=== PATIENT | female | born 1965 | race Caucasian/White ===

== ENCOUNTER 2024-07-14 08:23 | Emergency (ER) | payer OTHER, BC, SELFPAY ==
--- NOTE | 2024-07-14 08:35 | ED_ITS ---
HPI - URI/Sore Throat General Chief Complaint: Upper Respiratory Infection Stated Complaint: Sore Throat History of Present Illness HPI Narrative: 59 y/o female presented for c/o sore throat intermittently x3 weeks. Reports the left side of the throat is slightly worse. States she was told by the school nurse the left tonsil looked swollen. Endorses mild runny nose and cough. Denies difficulty swallowing or any choking. Denies sob, wheezing, n/v/d/f/c. Took 3 ibuprofen this morning and the pain is better. Related Data Home Medications Medication Instructions Recorded Confirmed fluoxetine 20 mg capsule mg 07/14/24 07/14/24 pentosan polysulfate sodium 100 mg mg 07/14/24 capsule (Elmiron) Allergies Allergy/AdvReac Type Severity Reaction Status Date / Time No Known Allergies Allergy Verified 07/14/24 08:39 Review of Systems Review of Systems: CONSTITUTIONAL: Denies body aches, fever, chills, or sweats. EYES: Denies visual changes, redness, or discharge. ENT: Reports sore throat, rhinorrhea, denies congestion, or otalgia. CARDIOVASCULAR: Denies chest pain, palpitations, or edema. RESPIRATORY: Denies dyspnea. GASTROINTESTINAL: Denies abdominal pain, nausea, vomiting, or diarrhea. SKIN: Denies rash, itching, or wounds. MUSCULOSKELETAL: Denies back pain, joint pain, or myalgia. NEUROLOGIC: Denies headache Exam Narrative: GENERAL: well-appearing, no acute distress. EYES: conjunctivae clear ENT: Mucous membranes moist. TMs pearly farah with normal light reflex bilaterally; no tragal tenderness. Oropharynx mildly erythematous without lesions. Tonsils enlarged 1+ and without exudate. No drooling, no hoarseness, no trismus, uvula midline. No tripod positioning, hot potato voice, or soft palate swelling. NECK: Supple. No lymphadenopathy CHEST: Clear to auscultation, breath sounds equal. No respiratory distress, speaks in full sentences. HEART: Regular rate and rhythm. No murmur heard. SKIN: Warm, dry, no rash. NEURO: Alert and oriented x3. Course Course Emergency Course: Patient is aware of diagnosis, understands and agrees to treatment plan. Antici patory guidance given. Patient agrees to follow-up as directed and is aware of reasons to seek care at the emergency department. Portions of this record may have been created with voice recognition software Level of Care: Express Care Visit Vital Signs Vital signs: Vital Signs Temperature 97.8 F 07/14/24 08:36 Pulse Rate 73 07/14/24 08:36 Respiratory Rate 18 07/14/24 08:36 Blood Pressure 105/79 07/14/24 08:36 Pulse Oximetry 98 07/14/24 08:36 Oxygen Delivery Room Air 07/14/24 08:36 Temperature 97.8 F 07/14/24 08:36 Pulse Rate 73 07/14/24 08:36 Respiratory Rate 18 07/14/24 08:36 Blood Pressure 105/79 07/14/24 08:36 Pulse Oximetry 98 07/14/24 08:36 Oxygen Delivery Room Air 07/14/24 08:36 MDM - URI/Sore Throat MDM Narrative Medical decision making narrative: Neg strep result reviewed with pt. Discussed physical exam findings. Advise supportive treatments. Rx steroid. Patient is appropriate for outpatient treatment and follow-up. Differential Diagnosis Differential diagnosis: Likely upper respiratory infection, viral infection and pharyngitis Lab Data Labs: Lab Results 07/14/24 Range/Units 08:57 POC Grp A Strep Screen Negative (Negative) Discharge Plan Discharge Clinical Impression: Pharyngitis Patient Disposition: Home, Self-Care Condition: Stable Instructions: Antibiotic Form, Pharyngitis (ED) Additional Instructions: Rapid strep swab was negative today You will be notified in a few days if the culture comes back positive for strep, and appropriate antibiotics will be called in at that time. if symptoms are due to a viral illness, it is not treated with antibiotics. Viral symptoms can be present for up to 10-14 days. Recommend Flonase spray and Zyrtec for sinus congestion Cough syrup may cause drowsiness; avoid driving or take it at night time. Tylenol every 8 hours as needed for pain/fever Soft foods, cool liquids, warm tea. Gargle with warm saltwater twice a day. Chloraseptic spray and throat lozenges. Rest and stay hydrated. --Follow up with your PCP --Go to the ER immediately if you cannot swallow your saliva, trouble breathing/wheezing, throat swelling, pain is persistent and severe Prescriptions: New methylprednisolone [Medrol (Nathanael)] 4 mg tablets,dose pack See Rx Instructions .ROUTE .COMPLEX Qty: 21 0RF Rx Instructions: orally per package directions No Action Elmiron 100 mg capsule fluoxetine 20 mg capsule Follow-up/Referrals: Colt,Elmo Layton MD [Primary Care Provider] -
[2024-07-14 08:36] VITALS: BP 105/79; PULSE 73; RESP 18; TEMP 36.6; O2SAT 98
[2024-07-14 08:58] LABS: EDSTREPNEGPOS1 Negative (Negative)
== END 2024-07-14 09:09 | disposition home or self-care (01) ==
PROVIDERS: Emergency Provider Nurse Practitioner Family; PCP Family Medicine
DX: J02.9 Acute pharyngitis, unspecified (principal)
CPT/HCPCS: 87081; 87880; 99213; G0463